=== PATIENT | male | born 1970 | race Caucasian/White ===

== ENCOUNTER 2016-08-05 17:43 | Emergency (ER) | payer OTHER ==
[2016-08-05] MEDS ORDERED: Sodium Chloride 0.9% 1,000 ML IV ONE (19:22)
--- NOTE | 2016-08-05 19:22 | C.PDOC ---
History Of Present Illness 46 year old male presents to the ED with complaints of diarrhea, vomiting, and abdominal pain since yesterday. Patient states he has a child at home who was sick with similar symptoms and denies fever, chills, recent travel, or any other complaints at this time. Time Seen by Provider: 08/05/16 19:21 Chief Complaint (Nursing): GI Problem History Per: Patient History/Exam Limitations: no limitations Onset/Duration Of Symptoms: Days Current Symptoms Are (Timing): Still Present Severity: Mild Pain Scale Rating Of: 3 Location Of Pain/Discomfort: Diffuse Radiation Of Pain To:: None Quality Of Discomfort: "Pain" Associated Symptoms: Nausea, Vomiting, Diarrhea. denies: Fever, Chills, Back Pain Exacerbating Factors: None Alleviating Factors: None Recent travel outside of the [place]: No Past Medical History Reviewed: Historical Data, Nursing Documentation, Vital Signs Vital Signs: Last Vital Signs Temp 98.4 F 08/05/16 22:59 Pulse 73 08/05/16 22:59 Resp 18 08/05/16 22:59 BP 95/60 L 08/05/16 22:59 Pulse Ox 98 08/05/16 22:59 - Medical History PMH: Seizures Surgical History: Cholecystectomy Family History: States: Unknown Family Hx - Social History Hx Alcohol Use: No Hx Substance Use: No - Immunization History Hx Tetanus Toxoid Vaccination: No Hx Influenza Vaccination: No Hx Pneumococcal Vaccination: No Review Of Systems Constitutional: Negative for: Fever, Chills Cardiovascular: Negative for: Chest Pain, Palpitations Respiratory: Negative for: Cough, Shortness of Breath Gastrointestinal: Positive for: Nausea, Vomiting, Abdominal Pain, Diarrhea Genitourinary: Negative for: Dysuria, Frequency Musculoskeletal: Negative for: Neck Pain, Back Pain Neurological: Negative for: Weakness, Numbness Physical Exam - Physical Exam Appears: Non-toxic, No Acute Distress Skin: Warm, Dry Head: Atraumatic, Normacephalic Eye(s): bilateral: Normal Inspection Oral Mucosa: Moist Neck: Supple Chest: Symmetrical, No Deformity Cardiovascular: Rhythm Regular, No Murmur Respiratory: No Accessory Muscle Use, No Rales, No Rhonchi, No Wheezing Gastrointestinal/Abdominal: Soft, No Tenderness, Distention, No Guarding, No Rebound, Other (+Tympanic to percussion) Neurological/Psych: Oriented x3, Normal Speech, Normal Cognition ED Course And Treatment - Laboratory Results Result Diagrams: 08/05/16 19:40 08/05/16 19:40 O2 Sat by Pulse Oximetry: 99 (Room air) Pulse Ox Interpretation: Normal Progress Note: Blood work and Urinalysis ordered and reviewed. Patient treated with Pepcid, Zofran, and IV fluids. Reevaluation Time: 23:05 Reassessment Condition: Improved Medical Decision Making Medical Decision Making: Upon provider reevaluation patient is feeling better, is medically stable, and requires no further treatment in the ED at this time. Patient will be discharged home with Rx for flagyl. Counseling was provided and all questions were answered regarding diagnosis and need for follow up with dr lawson. There is agreement to discharge plan. Return if symptoms persist or worsen. Disposition Counseled Patient/Family Regarding: Studies Performed, Diagnosis, Need For Followup, Rx Given - Disposition Referrals: Jason Lawson MD [Medical Doctor] - Disposition: HOME/ ROUTINE Disposition Time: 19:22 Condition: FAIR Additional Instructions: Please return if symptoms recur Prescriptions: Metronidazole [Flagyl] 500 mg PO TID #21 tablet Ondansetron ODT [Zofran ODT] 1 odt PO BID PRN #6 odt PRN Reason: Nausea/Vomiting Instructions: Duodenitis (ED), Gastritis (DC) - Clinical Impression Clinical Impression: Abdominal pain, Gastritis and duodenitis - Scribe Statement The provider has reviewed the documentation as recorded by the Scribe [address]. Provider Attestation: All medical record entries made by the Scribe were at my direction and personally dictated by me. I have reviewed the chart and agree that the record accurately reflects my personal performance of the history, physical exam, medical decision making, and the department course for this patient. I have also personally directed, reviewed, and agree with the discharge instructions and disposition.
[2016-08-05] MEDS ORDERED: Sodium Chloride 0.9% 1,000 ML ONE (19:38)
[2016-08-05 19:45] LABS: BASO % 0.3 % (0.0-2.0); EOS % 0.1 % (0.0-4.0); HEMATOCRIT 45.1 % (35.0-51.0); LYMPH # 0.8 K/uL (1.0-4.3); LYMPH % 8.7 % (20.0-40.0); MEAN CELL VOLUME 91.3 fL (80.0-94.0); MEAN CORPUSCULAR HGB CONC 33.9 g/dL (33.0-37.0); MEAN PLATELET VOLUME 7.7 fL (7.2-11.7); MONO # 1.1 K/uL (0.0-0.8); MONO % 12.2 % (0.0-10.0); NRBC % 0.1 % (0.0-2.0); PLATELET COUNT 187 K/uL (130-400); RED CELL DISTRIBUTION WIDTH 13.4 % (11.5-14.5); WHITE BLOOD COUNT 9.3 K/uL (4.8-10.8)
[2016-08-05 19:52] LABS: INR 1.1
[2016-08-05 19:54] LABS: RBC URINE 17 /hpf (0-3); URINE BILIRUBIN NEGATIVE (NEGATIVE); URINE BLOOD 2+ (NEGATIVE); URINE COLOR Yellow (YELLOW); URINE GLUCOSE (UA) NORMAL (Normal); URINE KETONE NEGATIVE (NEGATIVE); URINE LEUKOCYTE ESTERASE NEG Leu/uL (Negative); URINE PROTEIN NEGATIVE (NEGATIVE); URINE UROBILINOGEN NORMAL mg/dL (0.2-1.0); WBC URINE 4 /hpf (0-5)
[2016-08-05 19:56] LABS: CHLORIDE 94 mmol/L (98-107); SODIUM 133 mmol/L (132-148)
[2016-08-05 19:57] LABS: POTASSIUM 3.2 mmol/L (3.6-5.2)
[2016-08-05 19:59] LABS: ALB/GLOB RATIO 1.4 (1.0-2.1); ALKALINE PHOSPHATASE 112 U/L (38-126); ALT/SGPT 46 U/L (21-72); AST/SGOT 40 U/L (17-59); BILIRUBIN,TOTAL 0.3 mg/dL (0.2-1.3); BLOOD UREA NITROGEN 10 mg/dL (9-20); CALCIUM 8.2 mg/dl (8.6-10.4); CARBON DIOXIDE 20 mmol/L (22-30); GFR AFRICAN-AMERICAN > 60; GLUCOSE,RANDOM 95 mg/dL (75-110); TOTAL PROTEIN 7.9 g/dL (6.3-8.3)
[2016-08-05 20:35] LABS: NEUTROPHIL 64 % (50-75); TOTAL CELLS COUNTED 100
[2016-08-05] MEDS ORDERED: metroNIDAZOLE IV 500 mg/100 ml 100 ML IVPB STA (20:37)
[2016-08-05] MEDS ORDERED: metroNIDAZOLE IV 500 mg/100 ml 100 ML ONE (20:59)
[2016-08-05] MEDS ORDERED: Iodixanol 320 MG/ML 100 ML BOTTLE IV ONE (21:44)
[2016-08-05 23:01] VITALS: BP 95/60; PULSE 73; RESP 18; TEMP 98.4
[2016-08-05 23:08] VITALS: O2SAT 99
--- NOTE | 2016-08-06 09:40 | CT ---
PROCEDURE: CT Abdomen and Pelvis with intravenous contrast HISTORY: diffuse abdominal pain COMPARISON: None. TECHNIQUE: Axial computed tomographic images were performed through the abdomen and pelvis with intravenous contrast. 100 cc of Visipaque 320 intravenous contrast was administered. Subsequently, sagittal and coronal reformatted images were obtained. Radiation dose: Total exam DLP = 410 mGy-cm. This CT exam was performed using one or more of the following dose reduction techniques: Automated exposure control, adjustment of the mA and/or kV according to patient size, and/or use of iterative reconstruction technique. FINDINGS: LOWER THORAX: Unremarkable. LIVER: 1.6 centimeter enhancing lesion seen within the right hepatic lobe best seen on series 2 image 45. This may represent a hemangioma ; however, additional etiologies cannot be excluded. Correlation multiphasic CT may be helpful if clinically indicated. GALLBLADDER AND BILE DUCTS: Prior cholecystectomy. PANCREAS: Unremarkable. No gross lesion or ductal dilatation. SPLEEN: Unremarkable. ADRENALS: Unremarkable. No mass. KIDNEYS AND URETERS: Low-attenuation lesion in the right kidney may represent a cyst. Additional small hypodensity in the lower pole of the left kidney which may also represent a small cyst; however, additional etiologies not entirely excluded. Correlation with ultrasound or multiphasic CT or MR may be helpful if clinically indicated. VASCULATURE: Unremarkable. No aortic aneurysm. BOWEL: Mild mucosal enhancement and wall thickening involving the distal stomach and proximal duodenum which is suspicious for an inflammatory process such as a gastroduodenitis. Fluid-filled distended small bowel loops throughout the abdomen, nonspecific. APPENDIX: Question small 2 millimeter radiopaque focus in the distal appendix which may represent a small appendicolith. Appendix measures up to 6.8 millimeters in with, upper limits of normal. Mild fluid distension of the appendix. PERITONEUM: Unremarkable. No free fluid. No free air. LYMPH NODES: Unremarkable. No enlarged lymph nodes. BLADDER: Unremarkable. REPRODUCTIVE: Unremarkable. BONES: Partial fusion of the L4-L5 vertebral bodies. Postop changes in the left hip with streak artifact. OTHER FINDINGS: None. IMPRESSION: Mild mucosal enhancement and wall thickening involving the distal stomach and proximal duodenum which is concerning for possible inflammatory process such as a gastroduodenitis. Clinical correlation. 1.6 centimeter enhancing lesion in the right hepatic lobe as described above which may represent a hemangioma ; however, additional etiologies are not excluded. Correlation with multiphasic CT or MR may be helpful if clinically indicated. Fluid-filled distended small bowel loops throughout the abdomen, nonspecific. Question small 2 millimeter radiopaque focus in the distal appendix which may represent a small appendicolith. Appendix measures up to 6.8 millimeters in with, upper limits of normal. Mild fluid distension of the appendix. Clinical correlation. Prior cholecystectomy. Additional findings as above. These findings were preliminarily reported at 10:30 p.m. on 08/05/[address]Brendan De La Rosa from [facility].
== END 2016-08-05 23:26 | disposition home or self-care (01) ==
LOC: C.ER 17:43
DX: K29.70 Gastritis, unspecified, without bleeding (principal); K29.80 Duodenitis without bleeding
CPT/HCPCS: 74177; 80053; 81001; 83690; 85025; 85610; 85730; 96361; 96365; 96375; 99285; J1885; J2405; J7040; Q9967